=== PATIENT | female | born 1955 | race Caucasian/White ===

== ENCOUNTER → 2018-05-07 | Outpatient (CLI) | payer BC ==
--- NOTE | 2018-05-07 11:46 | US ---
EXAMINATION TYPE: US portal vein DATE OF EXAM: 05/07/2018 COMPARISON: US 01/31/2011 CLINICAL HISTORY: K70.31 Alcoholic cirrhosis. EXAM MEASUREMENTS: Liver Length: 16.3 Gallbladder Wall: 0.2 CBD: 0.5 Right Kidney: 9.4 x 3.7 x 4.0 ANATOMY: Pancreas: Obscured by bowel gas Liver: Prominent hyperechoic area visualized near the falciform ligament measuring 1.2 x 1.4 x 1.0 c m. Color flow patency within the portal vein: Yes Portal Vein Flow: Hepatopedal Gallbladder: Echogenic foci visualized, possible sludge visualized. Evidence for sonographic Harrison's sign: No CBD: wnl Right Kidney: No hydronephrosis, no cystic or solid area visualized Ascites noted? No IMPRESSION: 1. Hyperechoic 1.4 hepatic lesion not seen on the prior exam of 2010 for which further characterizati on with three-phase enhanced CT is recommended as this could represent a hemangioma, focal fatty infi ltration, or less likely other hepatic lesion such as hepatocellular carcinoma or hepatic adenoma. 2. There are two 4 mm gallbladder polyps. Annual surveillance is recommended for polyps of of this si ze. 3. Possible small amount of biliary sludge versus artifact.
== END | disposition home or self-care (01) ==
LOC: RADUSWWP 07:23
PROVIDERS: ATTEND Internal Medicine Gastroenterology
DX: K82.4 Cholesterolosis of gallbladder (principal); K76.9 Liver disease, unspecified
CPT/HCPCS: 93976

== ENCOUNTER 2018-10-09 09:30 | Day surgery (SDC) | payer BC ==
[2018-10-04 13:07] VITALS: BMI 25.2
[~2018-10-09 09:30] MED LIST: LIDOCAINE 1% 20 ML VIAL (10MG/ML) FOR IV START INTRADERMA PRN
[2018-10-09] MEDS: LACTATED RINGERS 1,000 ML IV SCH ×2 (11:21→11:33)
[2018-10-09 11:23] VITALS: RESP 16; TEMP 98.1
[2018-10-09] MEDS ORDERED: LIDOCAINE 1% INJ 10MG/ML (20 ML MDV) ONE (11:36)
[2018-10-09] MEDS ORDERED: PROPOFOL 10 MG/ML 20 ML VIAL IV ONE (11:36)
--- NOTE | 2018-10-09 11:56 | P.PCN ---
Date of Procedure: 10/09/18 Procedure(s) Performed: Brief history: Patient is a pleasant 62-year-old white female, scheduled for an elective upper endoscopy as well as colonoscopy as a part of evaluation of screening for esophageal varices and screening for colorectal neoplasia. She has history of alcoholic cirrhosis of the liver diagnosed 1 year ago. Procedure performed: Esophagogastroduodenoscopy with biopsy Colonoscopy with snare polypectomy Preoperative diagnosis: There was cirrhosis/screening for esophageal varices Screening for colon cancer Anesthesia: MAC Procedure: After informed consent was obtained from the patient was brought into the endoscopy unit and IV sedation was administered by anesthesia under continuous monitoring. Initially upper endoscopy was done. The Olympus GF 160 video endoscope was inserted inserted into the mouth and esophagus intubated without any difficulty and was gradually advanced into the stomach and duodenum and carefully examined. The bulb and second part of the duodenum appeared normal. The scope was then withdrawn into the stomach adequately insufflated with air and upon careful examination the antrum had prepyloric erythema consistent with gastritis and biopsies were done from this area. The body, cardia and fundus appeared normal. The scope was then withdrawn into the esophagus. Small sliding Hiatal hernia noted. The GE junction was located at 40 cm to the incisors. It appeared regular with no erythema erosions or ulcerations. Rest of the esophagus appeared normal. No esophageal varices seen. Patient tolerated the procedure well. At this time the patient continued to remain sedation. Initial digital rectal examination was normal. Olympus CF 160 video colonoscope was then inserted into the rectum and gradually advanced to the cecum without any difficulty. Careful examination was performed as the scope was gradually being withdrawn. The prep was excellent. the base of the cecum there was a 1 cm broad-based polyp that was removed by snare polypectomy. The cecum, ascending colon, transverse colon, descending colon, sigmoid colon and rectum appeared normal. Retroflexion was performed in the rectum and no lesions were noted. Patient tolerated the procedure well. Impression: 1. Upper endoscopy revealed small hiatal hernia and mild gastritis. No evidence of esophageal varices 2. Colonoscopy revealed a 1 cm broad-based cecal polyp status post snare polypectomy Recommendations: Findings of this examination were discussed with the patient as well as her family. She was advised to follow with the biopsy results. She can have a repeat colonoscopy in in 3-5 years based on the biopsy results. She can also have a repeat upper endoscopy in 2-3 years to screen for esophageal varices
[2018-10-09 12:23] VITALS: BP 102/67; PULSE 78
== END 2018-10-09 12:30 | disposition home or self-care (01) ==
LOC: ORWHC2ENDO 09:30
PROVIDERS: ATTEND Internal Medicine Gastroenterology
DX: Z12.11 Encounter for screening for malignant neoplasm of colon (principal); K29.50 Unspecified chronic gastritis without bleeding; D12.0 Benign neoplasm of cecum; K74.60 Unspecified cirrhosis of liver; K44.9 Diaphragmatic hernia without obstruction or gangrene; J44.9 Chronic obstructive pulmonary disease, unspecified; F17.210 Nicotine dependence, cigarettes, uncomplicated; Z79.899 Other long term (current) drug therapy
CPT/HCPCS: 88305; 45385; 43239; J2001; J2704

== ENCOUNTER → 2018-10-21 | Outpatient (CLI) | payer BC ==
--- NOTE | 2018-10-21 10:26 | US ---
EXAMINATION TYPE: US liver DATE OF EXAM: 10/21/2018 COMPARISON: Previous exam 01/31/2011, 05/07/2018 CLINICAL HISTORY: K74.60 cirrhosis of liver. EXAM MEASUREMENTS: Liver Length: 11.3 cm Gallbladder Wall: 0.3 cm CBD: 0.3 cm Right Kidney: 10.1 x 3.4 x 4.3 cm Pancreas: Tail obscured by overlying bowel gas Liver: Hyperechoic focus seen is stable compared to most recent exam may be along the ligamentum royce s, falciform ligament as on prior Gallbladder: echogenic foci in gallbladder CBD: wnl Right Kidney: wnl Hepatopedal flow in liver. There is no ascites. IMPRESSION: Some minimal dependent echogenic foci within the gallbladder may represent small stones o r polyps as on prior
== END | disposition home or self-care (01) ==
LOC: RADUSWWP 06:37
PROVIDERS: ATTEND Internal Medicine Gastroenterology
DX: R93.3 Abnormal findings on diagnostic imaging of other parts of digestive tract (principal)
CPT/HCPCS: 76705; 93976

== ENCOUNTER → 2020-05-03 | Outpatient (CLI) | payer BC ==
--- NOTE | 2020-05-03 09:40 | US ---
EXAMINATION TYPE: US liver DATE OF EXAM: 05/03/2020 COMPARISON: US 10/21/18 and 05/07/2018 CLINICAL HISTORY: 64-year-old female K74.60 Unspecified cirrhosis of liver. TECHNIQUE: Multiple sonographic images of the right upper quadrant are obtained. FINDINGS: EXAM MEASUREMENTS: Liver Length: 15.4 cm Gallbladder Wall: 0.2 cm CBD: 0.5 cm Right Kidney: 9.4 x 3.4 x 4.2 cm Pancreas: Tail obscured by overlying bowel gas Liver: Hyperechoic foci seen in Rt lobe adjacent to GB measuring 1.0 x 0.8 x 0.7 cm as seen on prior exam Gallbladder: Single echogenic, non shadowing foci seen along wall measuring 0.5 x 0.3 x 0.5 cm. No s hadowing calculi or wall thickening. Evidence for sonographic Harrison's sign: No CBD: wnl Right Kidney: No hydronephrosis. IMPRESSION: 1. A 1 cm echogenic focus within the liver near the gallbladder fossa appears to have been present ba to 2017 suggesting a benign etiology such as focal fat or hemangioma. No new liver lesions identif ied. 2. Solitary 5 mm gallbladder wall polyp, previously measured at 4 mm. Attention on ongoing routine fo llow-up.
== END | disposition home or self-care (01) ==
LOC: RADUSWWP 08:06
PROVIDERS: ATTEND Internal Medicine Gastroenterology
DX: K82.4 Cholesterolosis of gallbladder (principal); K74.60 Unspecified cirrhosis of liver
CPT/HCPCS: 76705

== ENCOUNTER → 2020-05-04 | Outpatient (CLI) | payer BC ==
--- NOTE | 2020-05-05 11:17 | ECHOF ---
Referral Reason:R01.1 Cardiac Murmur MEASUREMENTS -------- HEIGHT: 157.5 cm WEIGHT: 54.4 kg BP: IVSd: 1.4 cm (0.6 - 1.1) LVIDd: 3.1 cm (3.9 - 5.3) LVPWd: 1.4 cm (0.6 - 1.1) IVSs: 1.7 cm LVIDs: 1.6 cm LVPWs: 1.7 cm LAESV Index (A-L): 27.00 ml/m Ao Diam: 3.4 cm (2.0 - 3.7) AV Cusp: 1.4 cm (1.5 - 2.6) MV E Sanjay: 0.83 m/s MV DecT: 199 ms MV A Sanjay: 1.14 m/s MV E/A Ratio: 0.73 AV maxP.84 mmHg AV meanP.89 mmHg AR PHT: 537 ms RAP: 5.00 mmHg RVSP: 30.41 mmHg FINDINGS -------- Sinus rhythm. This was a technically difficult study with suboptimal parasternal views. The left ventricular size is normal. There is moderate concentric left ventricular hypertrophy. T here is normal global left ventricular contractility. The right ventricle is normal in size. Normal LA size by volume 22+/-6 ml/m2. The right atrium was not well visualized. Interatrial and interventricular septum intact. There is moderate aortic regurgitation. Peak/mean gradient across the Aortic Valve is 36.84mmHg / 2 4.89mmHg. Lvot obstruction with latoya, peak PG 51.9 mmHg, mean PG 25.9 mmHg. Increased velocity thro ugh Aortic valve can't rule out Aortic stenosis. Fznv-[id number] mitral regurgitation is present. Mild tricuspid regurgitation present. There is no evidence of pulmonary hypertension. The right v entricular systolic pressure, as measured by Doppler, is 30.41mmHg. There is no pulmonic regurgitation present. The aortic root size is normal. IVC Not well visulized. There is no pericardial effusion. CONCLUSIONS -------- 1. The left ventricular size is normal. 2. There is moderate concentric left ventricular hypertrophy. 3. There is normal global left ventricular contractility. 4. There is moderate aortic regurgitation. 5. Peak/mean gradient across the Aortic Valve is 36.84mmHg / 24.89mmHg. 6. Lvot obstruction with latoya, peak PG 51.9 mmHg, mean PG 25.9 mmHg. Increased velocity through Aort ic valve can't rule out Aortic stenosis. 7. Wpcz-vq-[id number] mitral regurgitation is present. 8. Mild tricuspid regurgitation present. CREDIT VERIFIER: Mignon Perez RDCS
== END | disposition home or self-care (01) ==
LOC: RADECHMAIN 13:42
PROVIDERS: ATTEND Family Medicine
DX: I08.3 Combined rheumatic disorders of mitral, aortic and tricuspid valves (principal); Q20.8 Other congenital malformations of cardiac chambers and connections
CPT/HCPCS: 93306

== ENCOUNTER → 2020-07-26 | Outpatient (CLI) | payer BC ==
--- NOTE | 2020-07-27 08:57 | MM ---
Reason for exam: screening (asymptomatic). Last mammogram was performed 9 years and 11 months ago. History: Patient is postmenopausal and had first child at age 36. Family history of breast cancer in cousin at age 40. Took hormonal contraceptives for 13 years. Took estrogen for 1 year. Physical Findings: A clinical breast exam by your physician is recommended on an annual basis and results should be correlated with mammographic findings. MG Screening Mammo w CAD Bilateral CC and MLO view(s) were taken. Prior study comparison: August 26, 2010, bilateral digital screening mammo w/CAD. There are scattered fibroglandular densities. Benign oil cyst calcifications. No significant changes when compared with prior studies. ASSESSMENT: Negative, BI-RAD 1 RECOMMENDATION: Routine screening mammogram of both breasts in 1 year.
== END | disposition home or self-care (01) ==
LOC: RADMAMWWP 06:59
PROVIDERS: ATTEND Family Medicine
DX: Z12.31 Encounter for screening mammogram for malignant neoplasm of breast (principal)
CPT/HCPCS: 77067

== ENCOUNTER 2021-10-11 10:35 | Day surgery (SDC) | payer MEDICARE ==
[2021-10-06 13:48] VITALS: BMI 22.6
[~2021-10-11 10:35] MED LIST changes: +ASPIRIN 325 MG TAB PO PRN; -LIDOCAINE 1% 20 ML VIAL (10MG/ML) FOR IV START INTRADERMA PRN; +SODIUM CHLORIDE 0.9% 1,000 ML in EMPTY BAG 1 BAG IV ONE
[2021-10-11 11:12] LABS: Glucose,Whole Blood 74 mg/dL (75-99)
[2021-10-11 11:23] LABS: Basophils % (A) 0 %; Eosinophils # (A) 0.3 k/uL (0-0.7); Eosinophils % (A) 3 %; HCT 43.5 % (34.0-46.0); HGB 14.8 gm/dL (11.4-16.0); Lymphocytes # (A) 2.1 k/uL (1.0-4.8); Lymphocytes % (A) 27 %; MCH 34.1 pg (25.0-35.0); MCV 100.3 fL (80.0-100.0); Macrocytosis Slight; Mean Platelet Volume 6.7; Monocytes # (A) 0.4 k/uL (0-1.0); Monocytes % (A) 5 %; Neutrophils # (A) 4.8 k/uL (1.3-7.7); Neutrophils % (A) 62 %; Platelet Count 308 k/uL (150-450); RBC 4.34 m/uL (3.80-5.40); RDW 14.2 % (11.5-15.5); WBC 7.8 k/uL (3.8-10.6)
[2021-10-11 11:40] LABS: African American GFR (CKD) >90 (>60 ml/min/1.73 sqM); Anion Gap 2 mmol/L; Blood Urea Nitrogen 12 mg/dL (7-17); Calcium 9.3 mg/dL (8.4-10.2); Carbon Dioxide 25 mmol/L (22-30); Chloride 109 mmol/L (98-107); Glucose 72 mg/dL (74-99); Non-African American GFR(CKD) >90 (>60 ml/min/1.73 sqM); Potassium 4.1 mmol/L (3.5-5.1); Sodium 136 mmol/L (137-145)
[2021-10-11] MEDS: fentaNYL (PF) 50 MCG/ML 2 ML AMP IVP ONE ×2 (13:01→13:46)
[2021-10-11] MEDS ORDERED: MIDAZOLAM 2 MG/2 ML VIAL IVP ONE (13:01)
[2021-10-11] MEDS ORDERED: LIDOCAINE 1% INJ 10MG/ML (20 ML MDV) SQ ONE ×2 (13:04→13:23)
[2021-10-11] MEDS ORDERED: CLOPIDOGREL 75 MG TAB PO ONE (13:50)
[2021-10-11] MEDS ORDERED: IOPAMIDOL-250 100ML BTL INTRAARTER ONE ×2 (14:40→14:59)
[2021-10-11] MEDS ORDERED: IOPAMIDOL-370 100ML BTL INJ ONE (14:40)
--- NOTE | 2021-10-11 15:53 | IR ---
Fluoroscopy HISTORY: Pain in right groin 19.8 minutes fluoroscopy time supplied to the referring clinician. 505 intraoperative C-arm images d ocument the procedure. See dictated report from cardiology.
[2021-10-11 16:30] LABS: Glucose,Whole Blood 57 mg/dL (75-99)
[2021-10-11 16:48] LABS: Glucose,Whole Blood 106 mg/dL (75-99)
[2021-10-11] MEDS ORDERED: ATROPINE SULFATE 0.1 MG/ML 10ML SYRINGE ONE (17:59)
[2021-10-11] MEDS ORDERED: NALOXONE 0.4 MG/ML 1 ML VIAL IVP PRN (20:22)
[2021-10-11] MEDS ORDERED: SODIUM CHLORIDE 0.9% 1,000 ML in EMPTY BAG 1 BAG IV SCH (20:30)
[2021-10-11 20:32] LABS: Glucose,Whole Blood 162 mg/dL (75-99)
[2021-10-11] MEDS ORDERED: ATORVASTATIN 80 MG TAB PO SCH (21:00)
--- NOTE | 2021-10-11 22:45 | P.PCN ---
Description of Procedure: PROCEDURES PERFORMED: Abdominal angiography with bilateral runoff, WELDER OXYHYDROGEN and KAREN of the right external iliac with overlapping 6.0 x 40mm and 6.0 x 100mm Zilver KAREN, WELDER OXYHYDROGEN and BMS of right common iliac with a 8.0 x 19mm Omnilink stent, IVUS INDICATION: Gisselle 3 claudication, lifestyle limiting, PAD by lower extremity ultrasound HISTORY: Patient is a pleasant 65 year old female who has been having right lower extremity pain with mild to moderate activity despite walking program and had been found to have PAD by ultrasound. Therefore recommendation was for abdominal angiography and possible intervention. CONSENT:I have discussed the risks, benefits and alternative therapies for the above-mentioned procedure and for both sedation/analgesia as well as necessary blood product administration, if indicated, as they pertain to this patient. The patient has indicated understanding and acceptance of the risks and procedures discussed. PROCEDURE: After the risks, benefits and alternatives of the above mentioned procedure explained in detail with the patient, informed consent was obtained. Patient was taken to the catheterization lab and prepped and draped in usual fashion. 1% lidocaine was used to anesthetize the left femoral area. A 5- Frisian sheath was placed in the left femoral artery using modified Seldinger speedy hnique. A 5-Frisian pigtail catheter was inserted to the abdominal aorta and DSA imaging was obtained. Patient tolerated the diagnostic portion well. A 5Fr Rim catheter was advanced into the right common iliac origin and selective right iliac angiography was performed. The decision was made to perform intervention on the right common and external iliac arteries. Using ultrasound guidance and micropuncture technique, the right common femoral artery was accessed and a 0.014 BMW wire was able to be advanced into the 100% external iliac plaque through the micropuncture and a micropuncture sheath was able to placed. Next using a 0.035 glide wire in a glide catheter, the external iliac and common iliac lesions were able to be crossed from the right femoral sheath. Intraluminal access was verified with contrast injection. Next the microcatheter sheath was replaced with a 6Fr Brite tip sheath. Balloon angioplasty was performed with a 5mm balloon and patient did have some mild discomfort with ballooning of the external iliac lesion. Next IVUS was performed which showed an 8mm vessel at the common iliac artery and a 6mm vessel at the external iliac down to a 5.5mm vessel at the common femoral artery. Balloon angioplasty was performed of the right common iliac artery with a 6.0 x 20mm balloon. Next a 8 x 19mm Omnilink BMS was advanced and deployed in the right common iliac artery. Preintervention for the right common iliac artery there was a focal 90% stenosis with full antegrade flow and post intervention there was 0% stenosis with full antegrade flow and no dissection. Next a 6.0 x 100mm Zilver KAREN was advanced and deployed in the right external iliac artery. There was still a more distal external iliac lesion and therefore an additional 6.0 x 40mm Zilver KAREN was advanced and deployed overlapping with the 1st stent in the external iliac artery. The stents were post dilated with a 6.0mm balloon. Preintervention for the right external iliac lesion there was a 100% stenosis with no antegrade flow and post intervention there was 0% stenosis with full antegrade flow and no dissection. Both sutures were sutured in place to be pulled in the extended stay area. The patient tolerated the procedure well. Patient was transported back to the post catheterization holding area in stable condition. Conscious Sedation: Patient was monitored under the direct supervision of vision of myself for conscious sedation using Versed and fentanyl for a total duration of 100 minutes Abdominal aorta: The abdominal aorta has mild calcifcation. Renal arteries were not imaged. There is no significant dissection or aneurysm. There is no significant stenosis. Right lower extremity: Right common iliac artery: There is a focal 90% stenosis. Right external iliac artery: There is a long 100% FIELD SAMPLING TECHNICIAN of the external iliac which reconstitutes at the proximal common femoral artery. Right internal iliac artery: There is 100% right internal iliac stenosis. Right common femoral artery: There is no significant stenosis. Right profunda: There is no significant stenosis. Right SFA: There is no significant stenosis. Right popliteal artery: There is no significant stenosis. There appears to be 3 vessel runoff below the knee however limited opacification given more proximal disease. Left lower extremity: Left common iliac artery: There is no significant stenosis. Left external iliac artery: There is left external iliac 50% stenosis. Left internal iliac artery: There is no significant stenosis. Left common femoral artery: There is no significant stenosis. Left profunda: There is no significant stenosis. Left SFA: There is left SFA tandem 60% and 80% stenoses. Left popliteal artery: There is no significant stenosis. There appears to be 3 vessel runoff below the knee however limited opacification given more proximal disease. FINAL IMPRESSION: 1. Peripheral arterial disease as described above including right 90% common iliac, 100% right external iliac and left SFA tandem 60% and 80% stenoses. 2. S/p successful WELDER OXYHYDROGEN and KAREN of the right external iliac with overlapping 6.0 x 40mm and 6.0 x 100mm Zilver KAREN, WELDER OXYHYDROGEN and BMS of right common iliac with a 8.0 x 19mm Omnilink stent PLAN: 1. Aggressive risk factor modification per most recent ACC/AHA guidelines. 2. Continue dual antiplatelets for a minimum of 6 months. 3. Would treat left SFA lesion medically unless patient develops worsened claudication.
[2021-10-12 05:26] LABS: Glucose,Whole Blood 125 mg/dL (75-99)
[2021-10-12] MEDS ORDERED: ASPIRIN 81 MG PO SCH (09:00)
[2021-10-12] MEDS ORDERED: CLOPIDOGREL 75 MG TAB PO SCH (09:00)
[2021-10-12 09:04] VITALS: BP 108/70; PULSE 79; RESP 18; TEMP 97.6
[2021-10-12 09:57] LABS: African American GFR (CKD) >90 (>60 ml/min/1.73 sqM); Non-African American GFR(CKD) 86 (>60 ml/min/1.73 sqM)
--- NOTE | 2021-10-12 10:02 | P.DS ---
Providers Attending physician: Paolo Talley DO Primary care physician: Jose Raul [facility] Course: Patient is pleasant 65-year-old female with history of tobacco abuse and PAD who has been having lifestyle limiting claudication on the right side. She had abnormal ultrasound and therefore underwent abdominal angiogram with bilateral lower extremity runoff 10/11 and also underwent intervention of the right common iliac and right external iliac artery. Patient has been doing well since and denies any chest pain or pressure or shortness breath. She was placed on aspirin and Plavix as well as Lipitor and tolerating medications well. Groin sites appears stable. Patient is stable for discharge home. Plan - Discharge Summary Discharge Rx Participant: No New Discharge Prescriptions: New Atorvastatin [Lipitor] 40 mg PO DAILY #90 tablet Clopidogrel [Plavix] 75 mg PO DAILY #90 tablet Aspirin 81 mg PO DAILY #90 tab No Action Cholecalciferol [Vitamin D3] 1,000 unit PO DAILY Ibuprofen [Advil] 200 mg PO Q6HR PRN PRN Reason: Pain Albuterol Sulfate [Proventil Hfa] 1 - 2 puff INHALATION Q6HR PRN PRN Reason: Dyspnea Insulin Glargine,Hum.rec.anlog [Toujeo Solostar] 35 units SQ HS Exenatide Microspheres [Bydureon Bcise Auto-Injector] 2 mg SQ TH Discharge Medication List Cholecalciferol [Vitamin D3] 1,000 unit PO DAILY 05/04/14 [History] Albuterol Sulfate [Proventil Hfa] 1 - 2 puff INHALATION Q6HR PRN 10/04/18 [History] Ibuprofen [Advil] 200 mg PO Q6HR PRN 10/04/18 [History] Exenatide Microspheres [Bydureon Bcise Auto-Injector] 2 mg SQ TH 10/06/21 [History] Insulin Glargine,Hum.rec.anlog [Toujeo Solostar] 35 units SQ HS 10/06/21 [History] Aspirin 81 mg PO DAILY #90 tab 10/12/21 [Rx] Atorvastatin [Lipitor] 40 mg PO DAILY #90 tablet 10/12/21 [Rx] Clopidogrel [Plavix] 75 mg PO DAILY #90 tablet 10/12/21 [Rx] Follow up Appointment(s)/Referral(s): Zak Herzog MD [STAFF PHYSICIAN] - 1 Week (APPOINTMENT MADE ON October 9:15AM )
== END 2021-10-12 10:41 | disposition home or self-care (01) ==
LOC: CATHCVL 10:35 → 3SCARD 14:54 → CATHCVL 10-12 10:41
PROVIDERS: ATTEND Internal Medicine
DX: E11.51 Type 2 diabetes mellitus with diabetic peripheral angiopathy without gangrene (principal); I70.211 Atherosclerosis of native arteries of extremities with intermittent claudication, right leg; K74.60 Unspecified cirrhosis of liver; J44.9 Chronic obstructive pulmonary disease, unspecified; E11.9 Type 2 diabetes mellitus without complications; I35.2 Nonrheumatic aortic (valve) stenosis with insufficiency; Z82.49 Family history of ischemic heart disease and other diseases of the circulatory system; F17.210 Nicotine dependence, cigarettes, uncomplicated; Z79.4 Long term (current) use of insulin; Z20.822 Contact with and (suspected) exposure to COVID-19
CPT/HCPCS: 37221; 37223; 75625; 75710; 37252; 80048; 82565; 85025; 87635; C1894 ×2; C1769 ×6; C1725; C1876; C1753 ×2; C1874 ×3; J2250; J2001; J3010; J1644; Q9966

== ENCOUNTER → 2023-01-18 | Outpatient (CLI) | payer MEDICARE ==
--- NOTE | 2023-01-18 10:28 | CTL ---
EXAMINATION TYPE: CT Low Dose Lung DATE OF EXAM: 01/18/2023 10:12 AM CLINICAL INDICATION:Female, 67 years old with history of Z87.891 PERSONAL HX OF NICOTINE DEP; Persona l history of tobacco use , history of tobacco use. COMPARISON: None. TECHNIQUE: Multiple axial non-contrast scans were obtained from approximately the lung apices through the upper abdomen. Coronal and sagittal reformatted images were obtained. Low dose technique was uti lized. CT DLP: 50.4 mGycm, Automated exposure control for dose reduction was used. CT Contrast: Contrast used: None Oral contrast used: None FINDINGS: ======== Lack of intravenous contrast and low dose technique limits the evaluation of the vascular and soft ti ssue structures. LUNGS: No evidence of pulmonary fibrosis. No evidence of focal consolidation, pneumothorax or pleural effusion. Mild centrilobular emphysema changes. Nodules: RUL: None. RML: None. RLL: None. CHICHI: 3 mm groundglass opacity. LLL: None. AIRWAY: Patent and unremarkable. HEART: Size within normal limits. Mild calcifications of the coronary arteries MEDIASTINUM: No gross evidence of adenopathy. VASCULATURE: Atherosclerotic calcifications are present throughout the aorta and its branches. MUSCULOSKELETAL: No acute osseous abnormalities SOFT TISSUES/LYMPH NODES: Unremarkable. LOWER NECK: No significant findings. UPPER ABDOMEN: No significant findings. IMPRESSION: 1. No clinically significant pulmonary nodules. 2. 3 mm groundglass opacity in the left upper lobe. CT LUNG RAD AND CT CHEST RECOMMENDATION: Lung-Rad 2 Benign Appearance or Behavior: Continue annual sc reening with LDCT in 12 months. S Modifier (other clinically significant findings): None Recommend smoking cessation (if current smoker), or continuation of smoking cessation (if prior smoke r). Annual screening for lung cancer with low-dose computed tomography is recommended in adults ages 55 to 77 years who have a 30 pack-year smoking history and currently smoke or have quit within the pa st 15 years. Screening should be discontinued once a person has not smoked for 15 years or develops a health problem that substantially limits life expectancy or the ability or willingness to have curat jose enrique lung surgery. Lung rads 2021 [email or web address]
== END | disposition home or self-care (01) ==
LOC: RADCTMAIN 09:44
PROVIDERS: ATTEND Family Medicine
DX: Z12.2 Encounter for screening for malignant neoplasm of respiratory organs (principal); J43.2 Centrilobular emphysema; R91.8 Other nonspecific abnormal finding of lung field; Z87.891 Personal history of nicotine dependence
CPT/HCPCS: 71271

== ENCOUNTER → 2023-11-26 | Outpatient (CLI) | payer MEDICARE ==
--- NOTE | 2023-11-26 08:10 | US ---
EXAMINATION TYPE: US liver DATE OF EXAM: 11/26/2023 COMPARISON: 09/13/2022 CLINICAL INDICATION: Female, 67 years old with history of K70.31 ALCOHOLIC CIRRHOSIS OF LIVER WITH CITES; known cirrhosis, gb stone TECHNIQUE: Multiple sonographic images of the right upper quadrant are obtained. FINDINGS: EXAM MEASUREMENTS: Liver Length: 14.4 cm Gallbladder Wall: 0.2 cm CBD: 0.4 cm Right Kidney: 9.5 x 4.2 x 3.7 cm ISSUER NOTES: bowel gas limits view Pancreas: not seen due to bowel gas Liver: wnl , smooth contour to liver. No evidence for suspicious mediastinal or axillary cystic str uctures. Gallbladder: single stone seen Evidence for sonographic Harrison's sign: no CBD: wnl Right Kidney: prominent renal pelvis IMPRESSION: 1. No evidence for acute process. No evidence for cirrhosis. 2. Cholelithiasis.
== END | disposition home or self-care (01) ==
LOC: RADUSWWP 06:50
PROVIDERS: ATTEND Internal Medicine Gastroenterology
DX: K80.20 Calculus of gallbladder without cholecystitis without obstruction (principal); K70.31 Alcoholic cirrhosis of liver with ascites
CPT/HCPCS: 76705

== ENCOUNTER 2023-12-05 05:49 | Day surgery (SDC) | payer MEDICARE ==
[2023-11-29 16:04] VITALS: BMI 20.2
[~2023-12-05 05:49] MED LIST changes: -ASPIRIN 325 MG TAB PO PRN; +LIDOCAINE 1% (10MG/ML) FOR IV START INTRADERMA PRN; -SODIUM CHLORIDE 0.9% 1,000 ML in EMPTY BAG 1 BAG IV ONE
[2023-12-05] MEDS: LACTATED RINGERS 1,000 ML IV SCH (06:50)
[2023-12-05 06:56] LABS: Glucose,Whole Blood 55 mg/dL (70-110)
[2023-12-05 07:00] VITALS: TEMP 97.8
[2023-12-05] MEDS: DEXTROSE 50% SYRINGE 50 ML IVP ONE ×2 (07:00)
[2023-12-05] MEDS ORDERED: PROPOFOL 10 MG/ML 20 ML VIAL IV ONE (07:05)
[2023-12-05 07:24] LABS: Glucose,Whole Blood 188 mg/dL (70-110)
--- NOTE | 2023-12-05 07:32 | P.PCN ---
Date of Procedure: 12/05/23 Procedure(s) Performed: Brief history: Patient is a pleasant 67-year-old white female scheduled for an elective upper endoscopy as well as colonoscopy as a part of evaluation of history of liver cirrhosis/screening for esophageal varices and prior history of colon polyps Procedure performed: Esophagogastroduodenoscopy Colonoscopy Preoperative diagnosis: History of liver cirrhosis/screening for esophageal varices History of colon polyps Anesthesia: MAC Procedure: After informed consent was obtained from the patient was brought into the endoscopy unit and IV sedation was administered by anesthesia under continuous monitoring. Initially upper endoscopy was done. The Olympus GF 160 video endoscope was inserted inserted into the mouth and esophagus intubated without any difficulty and was gradually advanced into the stomach and duodenum and carefully examined. The bulb and second part of the duodenum appeared normal. The scope was then withdrawn into the stomach adequately insufflated with air and upon careful examination the antrum and body, cardia and fundus appeared normal. No evidence of gastric varices. The scope was then withdrawn into the esophagus. Small hiatal hernia noted. The GE junction was located at 40 cm to the incisors. It appeared regular with no erythema erosions or ulcerations. Rest of the esophagus appeared normal. There was no evidence of esophageal varices. Patient tolerated the procedure well. At this time the patient continued to remain sedation. Initial digital rectal examination was normal. Olympus CF 160 video colonoscope was then inserted into the rectum and gradually advanced to the cecum without any difficulty. Careful examination was performed as the scope was gradually being withdrawn. The prep was fair.. The cecum, ascending colon, transverse colon, descending colon, sigmoid colon and rectum appeared normal. Retroflexion was performed in the rectum and no lesions were noted. Patient tolerated the procedure well. Impression: 1. Upper endoscopy revealed small hiatal hernia but no evidence of esophageal or gastric varices 2. Colonoscopy was within normal limits with no evidence of colorectal neoplasia Recommendations: Findings of this examination were discussed with the patient as well as her family. She was advised to have repeat upper endoscopy in 3 years to screen for esophageal varices. Recommend repeat screening colonoscopy in 10 years.
[2023-12-05 08:05] LABS: Glucose,Whole Blood 142 mg/dL (70-110)
[2023-12-05 08:47] VITALS: BP 127/74; PULSE 71; RESP 18
== END 2023-12-05 08:18 | disposition home or self-care (01) ==
LOC: ORWHC2ENDO 05:49
PROVIDERS: ATTEND Internal Medicine Gastroenterology
DX: Z12.11 Encounter for screening for malignant neoplasm of colon (principal); K74.60 Unspecified cirrhosis of liver; K44.9 Diaphragmatic hernia without obstruction or gangrene; I73.9 Peripheral vascular disease, unspecified; J44.9 Chronic obstructive pulmonary disease, unspecified; E11.9 Type 2 diabetes mellitus without complications; Z98.891 History of uterine scar from previous surgery; Z79.899 Other long term (current) drug therapy; Z79.51 Long term (current) use of inhaled steroids; Z86.010 Personal history of colon polyps
CPT/HCPCS: 43235; J2704; G0121